=== PATIENT | female | born 1980 | race Caucasian/White ===

== ENCOUNTER 2017-12-22 15:43 | Emergency (ER) | payer OTHER ==
[~2017-12-22] VITALS: Ht 160 cm; Wt 81.6 kg
[2017-12-22] MEDS ORDERED: TDAP DIPH,PERTUSS,TET VAC/PF 0.5 ML DISP.SYRIN IM ONE ×2 (15:45→15:55)
[2017-12-22] MEDS ORDERED: MORPHINE SULFATE 4 MG/1 ML DISP.SYRIN IM ONE (15:45)
[2017-12-22] MEDS ORDERED: MORPHINE SULFATE 2 MG/1 ML DISP.SYRIN ONE (15:55)
[2017-12-22] MEDS ORDERED: MORPHINE SULFATE 4 MG/1 ML DISP.SYRIN ONE (15:55)
--- NOTE | 2017-12-22 16:14 | NUR ---
Patient initally stated she was not sure if her tetanus vaccine was current, but states that she had a baby approximately 18 months ago and was immunized at that time. Patient refused, as indicated in eMAR.
[2017-12-22] MEDS ORDERED: NEOMY/BACITRA/POLYMYXIN B OINT UD PACKET TP ONE ×2 (16:30→16:35)
--- NOTE | 2017-12-22 17:59 | NUR ---
PT WAS D/C TO HOME. D/C INSTRUCTIONS GIVEN TO THE PT. GAIT IS STABLE. PT DENIES PAIN. NO SOB. NO DIZZINESS. NO NAUSEA / VOMITING.
[2017-12-22 18:01] VITALS: BP 136/81
== END 2017-12-22 18:02 | disposition home or self-care (01) ==
LOC: ER 15:44
DX: S80.212A Abrasion, left knee, initial encounter (principal); S90.512A Abrasion, left ankle, initial encounter; S90.812A Abrasion, left foot, initial encounter; V89.2XXA Person injured in unspecified motor-vehicle accident, traffic, initial encounter; Y93.89 Activity, other specified; Y92.89 Other specified places as the place of occurrence of the external cause; Y99.8 Other external cause status
CPT/HCPCS: 29515; 73590; 73610; 73630; 90715; 96372; 99284; A4217; A4663; J2270 ×2